=== PATIENT | male | born 1955 | race Caucasian/White ===

== ENCOUNTER 2025-04-02 18:05 | Inpatient (IN) ==
[2025-04-02] MEDS: ONDANSETRON 4 MG/2 ML VIAL IV ONE (18:42)
[2025-04-02 18:51] LABS: Basophils # (Auto) 0.01 K/mcL (0.00-0.30); Basophils % (Auto) 0.1 % (0.0-2.0); Eosinophils # (Auto) 0.17 K/mcL (0.00-0.70); Eosinophils % (Auto) 2.3 % (0.0-7.0); Hematocrit 36.0 % (40.1-51.0); Hemoglobin 12.6 g/dL (13.7-17.5); Lymphocytes # (Auto) 1.48 K/mcL (1.50-4.80); Lymphocytes % (Auto) 20.0 % (15.5-49.0); Mean Corpuscular HGB Conc 35.0 g/dL (31.0-36.0); Monocytes # (Auto) 0.68 K/mcL (0.10-0.90); Monocytes % (Auto) 9.2 % (1.0-12.0); Neutrophils % (Auto) 68.0 % (38.0-78.0); Platelet Count 178 K/mcL (140-440); RBC 3.87 M/mcL (4.63-6.08); WBC 7.4 K/mcL (4.5-11.0)
[2025-04-02 19:26] LABS: Anion Gap 11.0 (8.0-16.0); Blood Urea Nitrogen 9 mg/dL (8-23); Calcium 9.4 mg/dL (8.6-10.4); Carbon Dioxide 21 mmol/L (22-30); Chloride 89 mmol/L (96-108); Glucose 101 mg/dL (70-105); Potassium 4.4 mmol/L (3.3-5.1); Sodium 121 mmol/L (133-145)
[2025-04-02 19:27] LABS: Thyroid Stimulating Hormone 1.09 uIU/mL (0.27-5.01)
[2025-04-02] MEDS ORDERED: LORazepam 2 MG/ML VIAL IV PRN (21:56)
[2025-04-02] MEDS ORDERED: hydrALAZINE 20 MG/ML VIAL IV PRN (21:56)
[2025-04-02] MEDS ORDERED: IPRATROPIUM/ALBUTEROL 3 ML AMPUL.NEB NEB PRN (21:56)
[2025-04-02] MEDS ORDERED: ONDANSETRON 4 MG/2 ML VIAL IV PRN (21:56)
[2025-04-02] MEDS: SODIUM CHLORIDE 1 GM TABLET PO SCH (22:29)
[2025-04-02] MEDS: KETOROLAC 30 MG/ML VIAL IV PRN (22:35)
[2025-04-02] MEDS: ACETAMINOPHEN 325 MG TABLET PO PRN (22:35)
[2025-04-02] MEDS ORDERED: CELECOXIB 200 MG CAPSULE PO PRN (22:35)
[2025-04-02] MEDS: 0.9 % SODIUM CHLORIDE 10 ML SYRINGE IV SCH (22:36)
[2025-04-02] MEDS: HYDROcodone/APAP 10/325MG TABLET PO SCH (22:43)
[2025-04-02] MEDS: PROCHLORPERAZINE 10 MG/2 ML VIAL IV PRN (22:57)
[2025-04-03] MEDS: HYDROcodone/APAP 10/325MG TABLET PO ONE ×2 (00:38→06:19)
[2025-04-03] MEDS ORDERED: HYDROcodone/APAP 10/325MG TABLET PO PRN (06:47)
[2025-04-03 07:23] LABS: Anion Gap 6.0 (8.0-16.0); Blood Urea Nitrogen 8 mg/dL (8-23); Calcium 9.0 mg/dL (8.6-10.4); Carbon Dioxide 27 mmol/L (22-30); Chloride 94 mmol/L (96-108); Glucose 108 mg/dL (70-105); Potassium 4.2 mmol/L (3.3-5.1); Sodium 127 mmol/L (133-145)
[2025-04-03] MEDS: DILTIAZEM 180 MG CAP.XL.24H PO SCH (09:33)
[2025-04-03] MEDS: METHOCARBAMOL 750 MG TABLET PO SCH (09:33)
[2025-04-03] MEDS: FAMOTIDINE 20 MG TABLET PO SCH (09:33)
[2025-04-03] MEDS: LEVOTHYROXINE 150 MCG TABLET PO SCH (09:34)
[2025-04-03] MEDS: DOCUSATE SODIUM 100 MG CAPSULE PO SCH (09:34)
[2025-04-03 11:07] VITALS: TEMP 97; O2SAT 96
[2025-04-03] MEDS: TAMSULOSIN 0.4 MG CAPSULE PO SCH (11:21)
[2025-04-03] MEDS: NON FORMULARY MEDICATION 1 DOSE MISCELL (Irbesartan 300 mg tablet) PO SCH (11:22)
[2025-04-03] MEDS: FLUTICASONE PROPIONATE SPRAY.NAS NS SCH (11:22)
[2025-04-03] MEDS: OMEPRAZOLE 20 MG CAPSULE PO SCH (11:22)
[2025-04-03] MEDS: RIVAROXABAN 20 MG TABLET PO SCH (11:23)
[2025-04-03] MEDS: FINASTERIDE 5 MG TABLET PO SCH (11:23)
[2025-04-03] MEDS: SUCRALFATE 1 GM/10 ML ORAL.SUSP PO SCH (11:24)
[2025-04-03] MEDS ORDERED: ATORVASTATIN 40 MG TABLET PO SCH (21:00)
[2025-04-03] MEDS ORDERED: SENNOSIDES 1 TABLET PO SCH (21:00)
== END 2025-04-03 12:54 | disposition home or self-care (01) | DRG 641 ==
LOC: ED 18:05 → MEDSUR 21:54
PROVIDERS: ADMIT Internal Medicine; ATTEND Internal Medicine